=== PATIENT | male | born 1950 | race Caucasian/White ===

== ENCOUNTER 2016-08-15 13:39 | Emergency (ER) | payer OTHER ==
[~2016-08-15] VITALS: Ht 177.8 cm; Wt 105.5 kg
[2016-08-15 13:39] VITALS: BP 136/79; PULSE 77; TEMP 99
[~2016-08-15 13:39] MED LIST: MOTRIN 200200 MG/TAB PO; MULTI VITAMINS1 TAB PO; NATURAL POTASS595 MG PO; NEURONTIN100 MG/CAP PO; OSTEO-BI-FLEX 21 TAB PO; PRILOTC PO; SYNTHROID 0.0.025 MG PO; XARELTO20 MG PO
[2016-08-15] MEDS ORDERED: IBU800 M1 PO (13:46)
== END 2016-08-15 15:17 | disposition home or self-care (01) ==
LOC: COL.ER 13:39
DX: S80.01XA Contusion of right knee, initial encounter (principal); S09.90XA Unspecified injury of head, initial encounter; V43.52XA Car driver injured in collision with other type car in traffic accident, initial encounter; Y92.410 Unspecified street and highway as the place of occurrence of the external cause; Z86.718 Personal history of other venous thrombosis and embolism; Z79.01 Long term (current) use of anticoagulants

== ENCOUNTER → 2018-03-19 | Outpatient (REF) ==
[~2018-03-19] MED LIST changes: +IBU800 M1 PO
== END ==
LOC: ZLAB.WCH 15:43
DX: Z01.89 Encounter for other specified special examinations (principal)
CPT/HCPCS: G0103

== ENCOUNTER 2022-04-11 09:03 | Inpatient (IN) | payer MEDICARE, OTHER ==
[~2022-04-11] VITALS: Ht 177.8 cm; Wt 160.0 kg
[2022-04-11] VITALS (12 sets, daily range): BP systolic 118–144; BP diastolic 62–82; PULSE 30–77; TEMP 98–98.9
[2022-04-11 09:40] LABS: BASO # 0.1 K/mm3 (0.0-0.2); BASO % 1.1 % (0.0-2.0); EOS # 0.1 K/mm3 (0.0-0.7); EOS % 1.3 % (0.0-4.0); GRAN # 3.3 K/mm3 (1.4-6.5); GRAN % 59.4 % (42.2-75.2); HEMATOCRIT 49.6 % (42.0-52.0); HEMOGLOBIN 16.7 g/dl (13.5-18.0); LYMPH # 1.6 K/mm3 (1.2-3.4); LYMPH % 28.5 % (20.0-51.0); MEAN CELL VOLUME 98 fl (80.0-100.0); MEAN CORPUSCULAR HEMOGLOBIN 33 pg (27-31); MEAN CORPUSCULAR HGB CONC 34 g/dl (33.0-37.0); MEAN PLATELET VOLUME 10.5 fl (7.4-10.4); MONO # 0.5 K/mm3 (0.1-0.6); MONO % 9.5 % (1.7-9.3); PLATELET COUNT 171 K/mm3 (130-400); RED BLOOD COUNT 5.07 M/mm3 (4.20-5.60); REDCELL DISTRIBUTION WIDTH-CV 12.9 % (11.5-14.5)
[2022-04-11 09:58] LABS: ALBUMIN 4.1 gm/dL (3.4-4.8); BILIRUBIN,TOTAL 1.2 mg/dL (0.2-1.2); CALCIUM 9.4 mg/dL (8.4-10.2); CREATININE, serum 0.96 mg/dL (0.72-1.25); POTASSIUM 4.2 mmol/L (3.5-4.5); TOTAL PROTEIN 7.2 gm/dL (6.2-8.1)
[2022-04-11 10:12] LABS: TROPONIN-I 0.045 ng/mL (0.00-0.033)
[2022-04-11] MEDS ORDERED: PRAVACHOL 40MG40 MG PO (10:26)
[2022-04-11] MEDS ORDERED: ELIQUIS 2.5 PO (10:26)
--- NOTE | 2022-04-11 11:35 | NUR ---
SEE MERGE FOR ALL NOTES, MEDICATIONS AND VITALS. PATIENT EMERGENT PPM PLACEMENT 3RD HB
--- NOTE | 2022-04-11 12:50 | NUR ---
Pt arrives to room 207 via bed. Is A&O x 4, VSS, RA, afebrile. Incision to L chest covered with surgical dressing. Dressing CDI, pt denies pain, surrounding tissue without pain. Applied ice to surgical site. Sling in place to L arm. Pt able to move all extremeties. Is educated to L arm restrictions and acknowledges understanding. court monitor in place, SR 60's. Mild edema noted to BLE. Pt ambulates with SBA to BR.
--- NOTE | 2022-04-11 13:39 | NUR ---
Dr Frye notified of critical troponin of 0.061
--- NOTE | 2022-04-11 17:55 | NUR ---
Notified Dr. Moran of 6 hour Trop 0.095. Instructed no repeat lab needed.
[2022-04-12 00:13] VITALS: BP 143/72; PULSE 72; TEMP 98.9
[2022-04-12 03:53] VITALS: BP 132/73; PULSE 69; TEMP 99.1
--- NOTE | 2022-04-12 04:07 | NUR ---
Shift assessment completed around 2029. A&Ox4. No pain or discomfort. Slightly tender on incision site left upper arm. Dressing is CDI. Sling on. Tele on. RFA INT is CDI. No other needs or concerns were expressed at this time. Belongings and call light are within reach.
[2022-04-12 06:31] LABS: BASO # 0.1 K/mm3 (0.0-0.2); BASO % 0.6 % (0.0-2.0); EOS % 0.2 % (0.0-4.0); GRAN # 6.2 K/mm3 (1.4-6.5); GRAN % 76.1 % (42.2-75.2); HEMATOCRIT 47.3 % (42.0-52.0); HEMOGLOBIN 15.3 g/dl (13.5-18.0); LYMPH # 1.1 K/mm3 (1.2-3.4); LYMPH % 13.1 % (20.0-51.0); MEAN CELL VOLUME 101 fl (80.0-100.0); MEAN CORPUSCULAR HEMOGLOBIN 33 pg (27-31); MEAN CORPUSCULAR HGB CONC 32 g/dl (33.0-37.0); MEAN PLATELET VOLUME 11.1 fl (7.4-10.4); MONO # 0.8 K/mm3 (0.1-0.6); MONO % 9.9 % (1.7-9.3); PLATELET COUNT 143 K/mm3 (130-400); RED BLOOD COUNT 4.69 M/mm3 (4.20-5.60); REDCELL DISTRIBUTION WIDTH-CV 13.1 % (11.5-14.5)
[2022-04-12 06:55] LABS: CALCIUM 8.4 mg/dL (8.4-10.2); CREATININE, serum 0.81 mg/dL (0.72-1.25); POTASSIUM 4.2 mmol/L (3.5-4.5)
[2022-04-12 07:05] VITALS: BP 126/68; PULSE 66; TEMP 98.5
[2022-04-12] MEDS ORDERED: CLEOCIN HCL300 MG PO (10:03)
--- NOTE | 2022-04-12 11:43 | NUR ---
SW met with patient to complete intake. Patient provides that he lives in [facility] with his Milly [phone]. Patient states that he does not utilize DME, is independent with ADL's and does not utilize HH services at this time. PCP is Dr. Chau, and pharmacy is [facility]. Patient's is DPOA/HC and he plans to return to his home upon DC. SW will continue to follow. DC plan: home
[2022-04-12 11:55] VITALS: BP 113/49; PULSE 69; TEMP 98.6
--- NOTE | 2022-04-12 13:29 | NUR ---
Initial visit: Pt was resting and content with by his side. Pt has no needs right now. Veterinary Surgeon will follow up as needed
--- NOTE | 2022-04-12 15:02 | NUR ---
PATIENT DISCHARGED VIA WHEELCHAIR WITH NURSE. RECEIVED DISCHARGE INSTRUCTIONS WITH MEDICATIONS AND FOLLOW UP APPOINTMENTS. ACKNOWLEDGED UNDERSTANDING. NO ISSUES.
== END 2022-04-12 14:52 | disposition home or self-care (01) | DRG 244 ==
LOC: COL.ER 09:03 → MEDICAL 13:28
PROVIDERS: Emergency Medicine; ADMIT Hospitalist
PROC: 0JH606Z Insertion of Pacemaker, Dual Chamber into Chest Subcutaneous Tissue and Fascia, Open Approach (ICD-10-PCS; principal; 2022-04-11)
PROC: 02H63JZ Insertion of Pacemaker Lead into Right Atrium, Percutaneous Approach (ICD-10-PCS; 2022-04-11)
PROC: 02HK3JZ Insertion of Pacemaker Lead into Right Ventricle, Percutaneous Approach (ICD-10-PCS; 2022-04-11)
DX: I44.2 Atrioventricular block, complete (principal); E78.5 Hyperlipidemia, unspecified; K21.9 Gastro-esophageal reflux disease without esophagitis; E03.9 Hypothyroidism, unspecified; I44.4 Left anterior fascicular block; M19.90 Unspecified osteoarthritis, unspecified site; F10.90 Alcohol use, unspecified, uncomplicated; G89.29 Other chronic pain; M25.512 Pain in left shoulder; I08.3 Combined rheumatic disorders of mitral, aortic and tricuspid valves; Z90.79 Acquired absence of other genital organ(s); Z88.0 Allergy status to penicillin; Z86.718 Personal history of other venous thrombosis and embolism; Z79.01 Long term (current) use of anticoagulants; Z23 Encounter for immunization; Z85.46 Personal history of malignant neoplasm of prostate
CPT/HCPCS: C1785; C1894; C1898; J0461; J1265; J3370; J7030; J7050; Q9967